=== PATIENT | male | born 1975 | race Caucasian/White ===

== ENCOUNTER 2017-02-03 19:43 | Emergency (ER) | payer BC ==
[~2017-02-03] VITALS: Ht 175.3 cm; Wt 97.5 kg
[2017-02-03] MEDS ORDERED: CEPHALEXIN500 MG PO (20:28)
[2017-02-03] MEDS ORDERED: BACTRIM DS TAB1 EACH PO (20:28)
[2017-02-03] MEDS ORDERED: FLUOCINONIDE15 GM TOP (20:28)
== END 2017-02-03 20:35 | disposition home or self-care (01) ==
LOC: ED 19:43
DX: L25.9 Unspecified contact dermatitis, unspecified cause (principal); L03.113 Cellulitis of right upper limb
CPT/HCPCS: 99283

== ENCOUNTER 2018-08-21 16:58 | Emergency (ER) | payer BC ==
[~2018-08-21] VITALS: Ht 175.3 cm; Wt 97.5 kg
--- OUTSIDE RECORDS SUMMARY | ~2018-08-21 | XMS | Clinical Summary ---
Demographics + + + | Address | [address] | | | [place] [address] | + + + | Home Phone | | + + + | Preferred Language | Unknown | + + + | Marital Status | | + + + | Mandaeism Affiliation | Unknown | + + + | Race | Unknown | + + + | Ethnic Group | Unknown | + + + Author + + + | Author | [facility] | | | and [place] | + + + | Organization | [facility] | | | and [place] | + + + | Address | Unknown | + + + | Phone | Unavailable | + + + Support + + +---------+ + | Name | Relationship | Address | Phone | + + +---------+ + | Manuela Mancia | Unknown | Unavailable | + + +---------+ + Care Team Providers + +------+ + | Care Director Teen Post Name | Role | Phone | + +------+ + PP | Unavailable | + +------+ + Allergies No Known Allergies Current Medications + + +--------+---------+------+------+-------+ | Prescription | Sig. | Disp. | Refills | Star | End | Statu | | | | | | t | Date | s | | | | | | Date | | | + + +--------+---------+------+------+-------+ | naproxen sodium | as directed | | | 09/1 | | Activ | | ([facility] NAPROXEN | | | | 4/20 | | e | | SODIUM) 220 MG | | | | 12 | | | | tablet | | | | | | | + + +--------+---------+------+------+-------+ | ibuprofen ([facility] | as directed | | | 02/01 | | Activ | | IBUPROFEN IB) 200 mg | | | | 4/20 | | e | | tablet | | | | 12 | | | + + +--------+---------+------+------+-------+ | cyclobenzaprine | Take 1 tablet by | 60 | 3 | 10/0 | | Activ | | (FLEXERIL) 10 mg | mouth nightly for | tablet | | 3/20 | | e | | tabletIndications: | 100 days. | | | 12 | | | | SI (sacroiliac) | | | | | | | | joint dysfunction, | | | | | | | | Facet arthropathy, | | | | | | | | lumbar | | | | | | | + + +--------+---------+------+------+-------+ | methocarbamol | Take 1 tablet by | 100 | 3 | 10/0 | | Activ | | (ROBAXIN) 500 mg | mouth 4 times daily | tablet | | 3/20 | | e | | tabletIndications: | as needed (1-3 | | | 12 | | | | SI (sacroiliac) | tablets) for 100 | | | | | | | joint dysfunction, | days. | | | | | | | Facet arthropathy, | | | | | | | | lumbar, Muscle spasm | | | | | | | + + +--------+---------+------+------+-------+ | nabumetone | TAKE 2 TABLETS EVERY | 120 | 1 | 02/2 | | Activ | | (RELAFEN) 500 mg | MORNING | tablet | | 0/20 | | e | | tablet | | | | 14 | | | + + +--------+---------+------+------+-------+ Active Problems Not on file Social History + +-------+ +--------+------+ | Tobacco Use | Types | Packs/Day | Years | Date | | | | | Used | | + +-------+ +--------+------+ | Never Assessed | | | | | + +-------+ +--------+------+ + + + | Sex Assigned at | Date Recorded | | | | + + + | Not on file | | + + + Last Filed Vital Signs + +---------+ + | Vital Sign | Reading | Time Taken | + +---------+ + | Blood Pressure | 124/92 | 01/17/2012 0000 PDT | + +---------+ + | Pulse | - | - | + +---------+ + | Temperature | - | - | + +---------+ + | Respiratory Rate | - | - | + +---------+ + | Oxygen Saturation | - | - | + +---------+ + | Inhaled Oxygen | - | - | | Concentration | | | + +---------+ + | Weight | - | - | + +---------+ + | Height | - | - | + +---------+ + | Body Mass Index | - | - | + +---------+ + Plan of Treatment + + + + + | Health Maintenance | Due Date | Last Done | Comments | + + + + + | Vaccine: | | | | | Dtap/Tdap/Td (1 - | 4 | | | | Tdap) | | | | + + + + + | Vaccine: Influenza | | | | | (#1) | 8 | | | + + + + + Results Not on filefrom Last 3 Months"
--- OUTSIDE RECORDS SUMMARY | ~2018-08-21 | XMS | Clinical Summary ---
Demographics + + + | Address | [address] | | | [place] [address] | + + + | Home Phone | | + + + | Preferred Language | Unknown | + + + | Marital Status | | + + + | Orthodoxy Affiliation | Unknown | + + + | Race | Unknown | + + + | Ethnic Group | Unknown | + + + Author + + + | Author | [facility] | | | and [place] | + + + | Organization | [facility] | | | and [place] | [...] Team Providers + +------+ + | Care Body Bumper Name | Role | Phone | + [...]
[~2018-08-21 16:58] MED LIST: BACTRIM DS TAB1 EACH PO; CEPHALEXIN500 MG PO; FLUOCINONIDE15 GM TOP
[2018-08-21] MEDS ORDERED: LISINOPRIL10 MG PO (17:10)
== END 2018-08-21 17:52 | disposition home or self-care (01) ==
LOC: ED 16:58
DX: S61.231A Puncture wound without foreign body of left index finger without damage to nail, initial encounter (principal); I10 Essential (primary) hypertension; Z79.899 Other long term (current) drug therapy; W26.8XXA Contact with other sharp object(s), not elsewhere classified, initial encounter
CPT/HCPCS: 36415; 84460; 86703; 86707; 86803; 87350; 99283